=== PATIENT | male | born 1950 | race Caucasian/White ===

== ENCOUNTER 2018-01-04 09:01 | Day surgery (SDC) | payer MEDICARE ==
[~2018-01-04 09:01] MED LIST: LIDOCAINE HCL 1% MPF SOL ONE; PROPOFOL 500 MG/50 ML EMU IV ONE
[2018-01-04 10:52] VITALS: BP 136/81; PULSE 72; RESP 94; TEMP 97.4; O2SAT 92
== END 2018-01-04 11:10 | disposition home or self-care (01) | DRG 951 ==
LOC: SURG 09:01
PROVIDERS: ATTEND Surgery
DX: Z12.11 Encounter for screening for malignant neoplasm of colon (principal); D12.8 Benign neoplasm of rectum; K57.30 Diverticulosis of large intestine without perforation or abscess without bleeding
CPT/HCPCS: J2001; J2704

== ENCOUNTER → 2019-01-05 | Day surgery (SDC) | payer MEDICARE ==
[~2019-01-05] MED LIST changes: +LIDOCAINE HCL 1% MPF 30 SOL ONE; -LIDOCAINE HCL 1% MPF SOL ONE
[2019-01-05 12:06] VITALS: BP 128/77; PULSE 64; RESP 18; TEMP 98.1; O2SAT 95
== END | disposition home or self-care (01) | DRG 951 ==
LOC: SURG 10:44
PROVIDERS: ATTEND Surgery
DX: Z12.11 Encounter for screening for malignant neoplasm of colon (principal); K57.32 Diverticulitis of large intestine without perforation or abscess without bleeding; Z87.19 Personal history of other diseases of the digestive system
CPT/HCPCS: J2001; J2704